=== PATIENT | female | born 1930 | race Caucasian/White ===

== ENCOUNTER 2016-07-13 16:07 | Emergency (ER) | payer MEDICARE, OTHER ==
[~2016-07-13] VITALS: TEMP 97.7; Ht 157.5 cm; Wt 95.3 kg
[~2016-07-13 16:07] MED LIST: ASCO-285 PO; CALC-946 PO; CALC250T2 PO; FURO20TA4 PO; GLUC1CAP45 PO; IBUP200C93 PO; METF500T4 PO; MULT1TAB39 PO; OMEP40CA52 PO; OXYB5TAB10 PO; PYRI200T PO; RAMI10CA24 PO; UBID100C10 PO; VITAMINS
--- NOTE | 2016-07-13 16:34 | NUR ---
PROVIDER DR. KAMINSKI AT BEDSIDE FOR EXAM.
[2016-07-13] MEDS ORDERED: ASPI-1115 PO (16:57)
[2016-07-13] MEDS ORDERED: ONDA4TAB10 PO (16:58)
[2016-07-13] MEDS ORDERED: MULT-1147 PO (17:02)
[2016-07-13] MEDS ORDERED: MELA1TAB8 PO (17:03)
[2016-07-13] MEDS ORDERED: FAMO10TA41 PO (17:04)
[2016-07-13] MEDS ORDERED: PAPA1TAB10 PO (17:04)
[2016-07-13] MEDS ORDERED: BIOT5000 PO (17:05)
[2016-07-13] MEDS ORDERED: MENT118G TOP (17:06)
[2016-07-13] MEDS ORDERED: GARL1TAB PO (17:07)
[2016-07-13] MEDS ORDERED: MULT-261 PO (17:15)
[2016-07-13] MEDS ORDERED: PYRI200T6 PO (17:15)
[2016-07-13] MEDS ORDERED: KYOLIC GARLIC PO (17:15)
[2016-07-13] MEDS ORDERED: ASCO500T9 PO (17:15)
[2016-07-13] MEDS ORDERED: CAT PO (17:15)
[2016-07-13] MEDS ORDERED: [UNRECOGNIZED DRUG - REMARK] PO (17:16)
[2016-07-13] MEDS ORDERED: NITR0.4T39 SL (17:16)
[2016-07-13] MEDS ORDERED: PREVAGEN PO (17:17)
--- NOTE | 2016-07-13 18:04 | NUR ---
RETURN PT RETURNED FROM RADIOLOGY BY CART AT THIS TIME.
--- NOTE | 2016-07-13 18:43 | NUR ---
STATUS PT WINCING WITH PAIN TO L KNEE. PROVIDER NOTIFIED.
[2016-07-13] MEDS ORDERED: ACETAMINOPHEN 500 MG TABLET PO ONE (19:00)
--- NOTE | 2016-07-13 19:44 | NUR ---
ACTIVITY PT UP IN ROOM WITH WALKER FOR AMBULATION. PT LEANING ON WALKER STATING "IT'S EASIER TO WALK THIS WAY. IT DOESN'T HURT MY KNEE BAD." EDUCATION ON PROPER WALKER USAGE PROVIDED TO PT AT THIS TIME. PT TOLERATES ACTIVITY WELL.
[2016-07-13] MEDS ORDERED: IBUPROFEN 200 MG TABLET PO ONE (19:45)
--- NOTE | 2016-07-13 19:52 | ERPDOC ---
Departure Disposition Decision Date: Jul 13, 2016 Disposition Decision Time: 19:15 Disposition: 01 DISCHARGED HOME, SELF-CARE Impression Impression Impression: Primary Impression: Knee sprain Encounter type: initial encounter Involved ligament of knee: other ligament Laterality: left Qualified Codes: S83.8X2A - Sprain of other specified parts of left knee, initial encounter Condition: Improved Seen By: Physician only Referrals: GRACE DACOSTA DO (Family) 1 Day Patient Instructions: Leg Pain (ED) Problems/Meds/Labs Reviewed?: Yes Medications reviewed and manag: Yes Follow up care ordered?: Yes Mental Status: Alert, Occasionally Confused HPI - Lower Extremity General Chief Complaint: Lower Extremity Pain Stated Complaint: LEFT LEG PAIN Time Seen by Provider: 16:33 Source: patient, family Exam Limitations: no limitations HPI - Lower Extremity Initial Comments 86-year-old female presents to the emergency department with a chief complaint of pain in the left leg. She noted onset of symptoms one day ago after she awkwardly twisted her leg and sat down on the floor in order to avoid falling or further injury. She denies striking her head, neck pain, or loss of consciousness. Patient has been having a moderate dull aching pain in the left leg mostly around the knee since the incident occurred. No radiation. She denies any other trauma or injury. Patient notes that the pain improves with [id number] analgesia and increases with ambulation and movement. She denies any other complaints or associated symptoms. She is not anticoagulated. Symptoms have been persistent in nature since onset. She normally ambulates with a walker. Occurred At: home Onset/Timing: Constant Allergies: Coded Allergies: Penicillins (Verified Allergy, Unknown, 07/13/16) Tetanus Vaccines and Toxoid (Verified Allergy, Unknown, 07/13/16) codeine (Verified Allergy, Unknown, 07/13/16) furosemide (Verified Allergy, Unknown, 07/13/16) goldenseal (Verified Allergy, Unknown, 07/13/16) omeprazole (Verified Allergy, Unknown, 07/13/16) propoxyphene (Verified Allergy, Unknown, 07/13/16) rofecoxib (Verified Allergy, Unknown, 07/13/16) rosuvastatin (Verified Allergy, Unknown, 07/13/16) sulfamethoxazole (Verified Allergy, Unknown, 07/13/16) tramadol (Verified Allergy, Unknown, 07/13/16) trimethoprim (Verified Allergy, Unknown, 07/13/16) Uncoded Allergies: SULFA MIXTURES (Allergy, Unknown, 11/08/07) Past History Past Medical History Metabolic: diabetes, hypertension GI: GERD Surgical History General: appendix Reproductive/: , hysterectomy Joint: knee Vaccines Hx Influenza Vaccination: No Hx Pneumococcal Vaccination: Yes (Pt thinks she had the pneumovax about 2 years ago) Hx Tetanus Diptheria: Yes ('YEARS AGO' PT ALLERGIC TO TETANUS) Social History Smoking Status: Never smoker Substance Use Type: does not use Alcohol Intake: none Sexuality: male partner Review of Systems Constitutional Constitutional: DENIES: chills, fever Eyes General: DENIES: erythema, exudate Lids/Accessories: DENIES: erythema, swelling Vision: DENIES: acuity, blurring ENMT Ears: DENIES: drainage, pain Hearing: DENIES: hearing loss Balance: DENIES: ataxia, falling to one side Sinuses: DENIES: congestion, pain Nose: DENIES: nosebleeds, pain Mouth/Throat: DENIES: painful swallowing, sore throat Teeth: DENIES: pain Jaw: DENIES: pain Cardiovascular Cardiac: DENIES: chest pain, dyspnea on exertion Rhythm/Rate: DENIES: irregular beat, palpitations Vascular: DENIES: pedal edema, unilateral swelling Pulmonary Respiratory: DENIES: cough, dyspnea, pleuritic chest pain, sputum GI Upper Abdomen: DENIES: nausea, pain, vomiting Lower Abdomen: DENIES: diarrhea, pain General: DENIES: dysuria, pain Musculoskeletal General: pain, tenderness Integumentary Skin: DENIES: itching, rash Neurological General: DENIES: headache, numbness, weakness Psychiatric Psychiatric: DENIES: nervousness, suicidal ideation/attempt Endocrine Endocrine: DENIES: polydipsia, polyphagia Hematologic/Lymphatic Hematologic/Lymphatic: DENIES: frequent nosebleeds, lymphadenopathy Allergic/Immunological Allergic/Immunoligical: DENIES: frequent infections, hives Physical Exam General General Nourishment: well nourished, well developed, appears stated age, no acute distress, adult General Body Habitus: well groomed Vitals and Pain First Documented Vital Signs Date Time Temp Pulse Resp B/P Pulse Ox O2 Delivery O2 Flow Rate FiO2 07/13/16 16:10 98.7 114 24 181/95 94 Room Air Weight: Kilograms: 103.400 Height (feet): 5 Height (inches): 2.00 Triage Pain Scale: RN VS reviewed by Provider: Yes Normal Exams: Head: Normocephalic w/o trauma Eyes: Pupils are PERRLA w/ EOMI, No scleral icterus, irritation, or foreign bodies noted ENMT: No facial trauma, nasal exudates, pharyngeal erythema, or exudates are noted Dental: No fractured, loose, or missing teeth noted Neck: Full range of motion, without adenopathy, JVD, bruits or thyromegaly Chest/Resp: Clear all wilson, with good airflow, and symmetry bilaterally CV: Regular rate and rhythm, without murmur or gallop, Pulses 2+ all extremities, capillary refill, <2 seconds all ext., no pedal edema noted Abdomen: Bowel sounds positive, soft, non-tender, non-distended, no hepatosplenomegaly, masses or bruits noted Lymphatic: No lymphadenopathy, or lymphedema noted Integumentary: No rashes, hives, or bruising noted, hair and nails, without abnormality Neurologic: Patient is alert, and oriented, cranial nerves, motor/sensory/ cerebellar, exams w/o gross deficits, to observation Psychiatric: Patient exhibits, appropriate attention, emotion and affect Neck (brief) Comments No midline tenderness or deformity. Musculoskeletal (brief) Comments LLE - full range of motion. Diffusely tender to palpation around the knee. Pulses are intact. Sensation intact. Capillary refill less than 2. No erythema. Trace lower extremity edema at baseline. Unremarkable ligamentous examination. No other tenderness in the left lower extremity. Skin is intact. All other extremities are unremarkable. Patient is able to ambulate with her walker in the emergency department. Differential Diagnoses Considering: Contusion, Fracture, Sprain, Strain Progress Results/Orders Orders Procedure Category Date Status Time Femur Left RAD 07/13/16 Taken 16:43 Knee Left 3 Views RAD 07/13/16 Taken 16:43 Tib-Fib Left 2 View RAD 07/13/16 Taken 16:43 Foot Left 3 Views RAD 07/13/16 Taken 16:43 Pelvis 1-2 View RAD 07/13/16 Taken Dedicated Pelv 16:43 Acetaminophen PHA 07/13/16 Complete (Tylenol Extra 19:00 Ibuprofen (Motrin) PHA 07/13/16 Complete 19:45 Medications Current ED Medications Acetaminophen (Tylenol Extra Strength) 1,000 mg O ONCE PO ; Start 07/13/16 at 19 :00; Stop 07/13/16 at 19:32; Status DC Ibuprofen (Motrin) 400 mg O ONCE PO Last administered on 07/13/16t 19:52; Start 07/13/16 at 19:45; Stop 07/13/16 at 19:46; Status DC Progress Progress Imaging is reviewed in detail with the patient and questions are answered. Patient is given analgesic pain medication with improvement in the emergency department. Imaging is negative. She was recommended to undergo placement of a knee immobilizer in the emergency department which she and her declined citing fall risk as a concern. She is to continue using over-the- counter analgesia as directed. After further discussion an Elkin wrap is placed to the patient's left knee with good alignment. She is distal neurovascularly intact post-application of Elkin wrap. Patient is able to ambulate with her walker in the emergency department. She is discharged home in improved condition. She is to follow up as instructed. She is to return to the emergency Department if her condition worsens or changes in any manner. Patient and family are in agreement with the current plan of management. Imaging was sent to [facility] for over read by radiology as patient and family requested interpretation by radiologist. All studies found to be negative. Patient's heart rate was 99 bpm taken by me immediately prior to discharge home. Xray Xray : Xray: Pelvis Interpretation: Normal, Interpreted by Me, Faxed Report (left hip: Negative left femur: Negative left knee: Negative left tibia/fibular: Negative left ankle : Negative left foot: Negative) ALBERTO KAMINSKI DO Jul 13, 2016 19:51
--- NOTE | 2016-07-13 20:04 | NUR ---
DISCHARGE WRITTEN INSTRUCTIONS REVIEWED AND SENT WITH PT. PT VERBALIZES UNDERSTANDING OF DI, DENIES QUESTIONS. PT EXITS ER BY W/C PER THIS RN AND IS ASSISTED INTO VEHICLE AT THIS TIME.
--- NOTE | 2016-07-14 08:13 | DI ---
Indication: ITS.REASON: pain PROCEDURE: TIB-FIB LEFT 2 VIEW: Encounter: Initial Comparison: None Findings: There is no acute fracture, dislocation or malalignment identified. Moderate osteoarthritis. Impression: No acute osseous abnormality. There is a preliminary report by [facility]. .
--- NOTE | 2016-07-14 08:14 | DI ---
Indication: ITS.REASON: pain PROCEDURE: KNEE LEFT 3 VIEWS: Encounter: Initial Comparison: None Findings: There is no acute fracture, dislocation or malalignment identified. Moderate to severe osteoarthritis in all three compartments with osteophyte formation and joint space loss. Impression: No acute osseous abnormality. There is a preliminary report by [employer] radiologic. .
--- NOTE | 2016-07-14 08:14 | DI ---
Indication: ITS.REASON: pain PROCEDURE: FOOT LEFT 3 VIEWS: Encounter: Initial Comparison: None Findings: There is no acute fracture, dislocation or malalignment identified. Severe degenerative change in the foot. Impression: No acute osseous abnormality. There is a preliminary report by [facility]. .
--- NOTE | 2016-07-14 08:15 | DI ---
Indication: ITS.REASON: pain PROCEDURE: AP and Lateral views of the Left Femur Encounter: Initial Comparison: None Findings: There is no acute fracture, dislocation or malalignment identified. Degenerative change in the knee. Impression: No acute osseous abnormality. There is a preliminary report by [facility]. .
--- NOTE | 2016-07-14 08:28 | DI ---
Indication: ITS.REASON: Fall with pain PROCEDURE: PELVIS 1-2 VIEW DEDICATED PELV: Encounter: Initial Comparison: None Findings: There is no acute fracture, dislocation or malalignment identified. Impression: No acute osseous abnormality. There is a preliminary report by [facility]. .
[2016-07-17 13:46] VITALS: Ht 157.5 cm; Wt 95.3 kg
[2016-07-17 13:52] VITALS: BP 139/102; PULSE 116; RESP 16; TEMP 97.7; O2SAT 96
[2016-07-17 14:11] VITALS: PULSE 116; RESP 15
[2016-07-17] MEDS ORDERED: DILTIAZEM 25mg/5ml INJECTION IV STA (14:12)
[2016-07-17] MEDS ORDERED: ASPIRIN 81 MG CHEWABLE TABLET PO SCH (14:13)
[2016-07-17] MEDS ORDERED: DILTIAZEM IV SCH (14:15)
[2016-07-17] MEDS ORDERED: ENOXAPARIN 100 MG/ML INJECTION SQ SCH (14:15)
[2016-07-17] MEDS ORDERED: NS IV SCH (14:15)
--- OUTSIDE RECORDS SUMMARY | 2016-07-17 14:15 | XMS REPORT | Continuity of Care Document ---
Author Author [facility] Organization [facility] Address Unknown Phone Unavailable Support Name Relationship Address Phone ALBERTO KAMINSKI DO Caregiver [address] [place] [address] Unavailable GRACE DACOSTA DO Caregiver [address] [place] [address] Unavailable AB BENAVIDES Next Of Kin [address] [place], [place] [id number] Insurance Providers Guarantor Shahnaz Benavides Address [address] [place] [address] Email [id number] Payer [facility] Preferred Policy Number [id number] Subscriber's Name Ab Benavides Relationship 01 Spouse Group Number [id number] Effective Date 13 Payer Medicare Policy Number [id number] Subscriber's Name Shahnaz Benavides Relationship 18 Self Effective Date 96 Chief Complaint and Reason for Visit Chief Complaint Lower Extremity Pain Reason for Visit Knee sprain Problems Past Problems Medical Problem Onset Date Abrasions of multiple sites Unknown Concussion Unknown Knee sprain Unknown Nasal bones, closed fracture Unknown Traumatic hematoma of forehead Unknown Medications Current Home Medications Medication Dose Units Route Directions Days Qty Instructions Start Date Ascorbic Acid (Vitamin C) 500 Mg Tablet 500 Mg Oral Twice A Day 07/13/16 Aspirin (Ecotrin) 325 Mg Tablet. 325 Mg Oral Daily 07/13/16 Biotin 5,000 Mcg Tab.rapdis 5,000 Mcg Oral Twice A Day 07/13/16 Cat's Claw Unknown Strength Capsule 1 Cap Oral Daily 07/13/16 Famotidine (Pepcid Ac) 10 Mg Tablet 10 Mg Oral Bedtime 07/13/16 Furosemide 20 Mg Tablet 20 Mg Oral Daily 10/07/15 Garlic 1 Each Tablet 1 Tab Oral Daily 07/13/16 Ibuprofen (Advil Liqui-Gels) 200 Mg Capsule 2 Cap Oral Every 4 Hours as needed for Pain 10/07/15 Kyolic Garlic 1 Tab Oral Daily 07/13/16 Melatonin 1 Mg Tablet 1 Mg Oral Bedtime 07/13/16 Menthol (Biofreeze) 118 Ml Gel..ml. 1 Applic Topically As Needed 07/13/16 Mood Fix 1 Tab Oral Daily 07/13/16 Multivitamin (Multiple Vitamins) 1 Each Tablet 1 Tab Oral Daily 07/13/16 Multivits Min/Iron/Fa/Herb#186 (Hair, Skin & Nails Caplet) 1 Each Tablet 1 Tab Oral Daily 07/13/16 Nitroglycerin 0.4 Mg Tab.subl 0.4 Mg Sublingual Every 5 Minutes as needed for Chest Tightness 07/13/16 Omeprazole 40 Mg Capsule. 40 Mg Oral Daily 10/07/15 Ondansetron (Ondansetron Odt) 4 Mg Tab.rapdis 4 Mg Oral Three Times A Day as needed for Nausea &/Or Vomiting 07/13/16 Papaya (Papaya Enzyme) 1 Each Tablet 4 Tab Oral Daily 07/13/16 Prevagen 1 Tab Oral Daily 07/13/16 Pyridoxine Hcl (Vitamin B-6) 200 Mg Tablet.er 200 Mg Oral Daily 07/13/16 Ramipril 10 Mg Capsule 10 Mg Oral Daily 10/07/15 Ubidecarenone (Coq-10) 100 Mg Capsule 100 Mg Oral Daily 02/29/08 Past Home Medications Medication Directions Ordered Status Methylsulfonylmethane (Msm) 1,000 Mg Capsule, 02/29/08 Discontinued Pantoprazole Sodium (Protonix) 40 Mg Tablet., 02/29/08 Discontinued Zolpidem Tartrate 5 Mg Tablet, 0.5 - 1 Tab Oral As Needed 02/29/08 Discontinued Social History Social History Problem Response Recorded Date/Time Onset Date Status Hx Substance Use No 07/13/2016 4:30pm Not Applicable Not Applicable Hx Alcohol Use No 07/13/2016 4:30pm Not Applicable Not Applicable Tobacco Usage none 10/07/2015 6:59pm Not Applicable Not Applicable Query Response Start Date Stop Date Smoking Status Never smoker Hospital Discharge Instructions No hospital discharge instructions. Plan of Care Discharge Date 07/13/16 8:04pm Disposition 01 DISCHARGED HOME, SELF-CARE Condition at Discharge Improved Instructions/Education Provided Leg Pain (ED) Prescriptions See Medication Section Referrals GRACE DACOSTA DO Order Date: 1 Day Address: [address] [place] [address] [address] [place] [phone] Note: Care Plan and Goals Physician Care Plan Problem: Knee Pain Goal: Follow up with primary care provider Instructions: Take medications and follow care plan as discussed/written Functional Status No functional status results. Allergies, Adverse Reactions, Alerts Allergen Type Severity Reaction Status Last Updated Penicillin Allergy Unknown Active 07/13/16 Tetanus Vaccines and Toxoid Allergy Unknown Active 07/13/16 Codeine Allergy Unknown Active 07/13/16 Propoxyphene Allergy Unknown Active 07/13/16 Furosemide Allergy Unknown Active 07/13/16 goldenseal Allergy Unknown Active 07/13/16 Sulfamethoxazole Allergy Unknown Active 07/13/16 Trimethoprim Allergy Unknown Active 07/13/16 Omeprazole Allergy Unknown Active 07/13/16 Tramadol Allergy Unknown Active 07/13/16 Rofecoxib Allergy Unknown Active 07/13/16 Rosuvastatin Allergy Unknown Active 07/13/16 SULFA MIXTURES Allergy Unknown Active 11/08/07 Immunizations Query Response on File Recorded Date/Time Hx Influenza Vaccination No 06/03/09 5:00pm Hx Pneumococcal Vaccination Y Pt thinks she had the pneumovax about 2 years ago 06/03/09 5:00pm Hx Influenza Vaccination No 06/03/09 5:00pm Hx Tetanus Diptheria N ALLERGIC TO TETANUS 07/13/16 4:30pm Vital Signs Acute Vital Signs Vital Response Date/Time Temperature (Fahrenheit) 98.7 deg F (96.8 - 99.1) 07/13/2016 8:04pm Temperature (Calculated Celsius) 37.24504 degrees C (36.0 - 37.3) 07/13/2016 8:04pm Pulse Rate (adult) 102 bpm (60 - 100) 07/13/2016 8:04pm Respiratory Rate 18 breaths/min (10 - 20) 07/13/2016 8:04pm O2 Sat by Pulse Oximetry 95 % (90 - 100) 07/13/2016 8:04pm Blood Pressure 131/93 mm Hg 07/13/2016 8:04pm Height (Feet) 5 feet 07/13/2016 4:10pm Height (Inches) 2.00 inches 07/13/2016 4:10pm Weight (Kilograms) 103.400 kg 07/13/2016 4:10pm Body Mass Index (BMI) 41.0 07/13/2016 4:10pm Results No known relevant diagnostic tests, laboratory data and/or discharge summary. Procedures No known history of procedures. Encounters Encounter Location Arrival/Admit Date Discharge/Depart Date Attending Provider Departed Emergency Room [facility] 07/13/16 4:07pm 07/13/16 8: 04pm ALBERTO KAMINSKI DO Registered [facility] 07/13/16 3:38pm GRACE DACOSTA DO Recent Diagnosis
--- NOTE | 2016-07-17 14:27 | DI ---
Indication: ITS.REASON: NEW ONSET AFIB WITH RVR PROCEDURE: CHEST 1 VIEW: Encounter: Initial Comparison: None Findings: A single frontal chest radiograph demonstrate moderate hypoventilation but no confluent infiltrate, cardiomegaly or pulmonary vascular engorgement allowing for the degree of inspiration. Pleural spaces clear. Trachea midline. Monitor leads overlie the chest. Degenerative changes of the left shoulder. Impression: Mild hypoventilation; negative for acute chest disease. .
[2016-07-17] MEDS ORDERED: NITROGLYCERIN 0.4 MG SUBLINGUAL TABLET SL PRN (14:30)
[2016-07-17 15:00] VITALS: BP 158/82; PULSE 96; RESP 15; TEMP 97.7; O2SAT 93
[2016-07-17 15:10] VITALS: PULSE 79; RESP 17; O2SAT 98
[2016-07-17] MEDS ORDERED: ASCORBIC ACID 500 MG TABLET PO SCH (21:00)
[2016-07-17] MEDS ORDERED: MELATONIN 1 MG TABLET PO SCH (22:00)
[2016-07-18] MEDS ORDERED: OMEPRAZOLE 20 MG CAPSULE PO SCH (06:30)
[2016-07-18] MEDS ORDERED: FUROSEMIDE 20 MG TABLET PO SCH (09:00)
[2016-07-18] MEDS ORDERED: ASPIRIN *EC* 325mg TABLET PO SCH (09:00)
[2016-07-18] MEDS ORDERED: RAMIPRIL 5 MG CAPSULE PO SCH (09:00)
[2016-07-20] MEDS ORDERED: DABI150C PO (15:03)
[2016-07-20] MEDS ORDERED: CEFD300C3 PO (15:03)
== END 2016-07-13 20:04 | disposition home or self-care (01) ==
LOC: ED 16:07 → UNDOADMOB 07-17 13:21 → CCU 07-17 13:21 → INTOOBSV 07-17 13:21 → OBSVTOIN 07-17 13:21 → SRG 07-17 15:43 → CCU 07-17 15:43
DX: S83.8X2A Sprain of other specified parts of left knee, initial encounter (principal); X50.1XXA Overexertion from prolonged static or awkward postures, initial encounter; Y93.9 Activity, unspecified; Y92.009 Unspecified place in unspecified non-institutional (private) residence as the place of occurrence of the external cause; Y99.8 Other external cause status
CPT/HCPCS: 72170; 73552; 73562; 73590; 73630; 99283; A9270; 93005; 93306

== ENCOUNTER 2016-08-10 15:46 | Observation (INO) | payer MEDICARE, OTHER ==
[2016-08-10] VITALS (33 sets, daily range): BP systolic 113–174; BP diastolic 58–98; PULSE 64–120; RESP 16–31; TEMP 98–98.7; O2SAT 89–95; Ht 157.5 cm; Wt 95.7 kg
[~2016-08-10] VITALS: Ht 157.5 cm; Wt 95.7 kg
[~2016-08-10 15:46] MED LIST changes: -ASCO-285 PO; +ASCO500T9 PO; +ASPI-1115 PO; +BIOT5000 PO; -CALC-946 PO; -CALC250T2 PO; +CAT PO; +CEFD300C3 PO; +DABI150C PO; +FAMO10TA41 PO; +GARL1TAB PO; -GLUC1CAP45 PO; -IBUP200C93 PO; +KYOLIC GARLIC PO; +MELA1TAB8 PO; +MENT118G TOP; -METF500T4 PO; +MULT-1147 PO; +MULT-261 PO; -MULT1TAB39 PO; +NITR0.4T39 SL; +ONDA4TAB10 PO; -OXYB5TAB10 PO; +PAPA1TAB10 PO; +PREVAGEN PO; -PYRI200T PO; +PYRI200T6 PO; -VITAMINS; +[UNRECOGNIZED DRUG - REMARK] PO
[2016-08-10] MEDS ORDERED: NORMAL SALINE IV ONE (15:49)
[2016-08-10] MEDS ORDERED: AMIODARONE 900 MG in NORMAL SALINE 500 ML IV SCH ×2 (15:49→21:49)
[2016-08-10] MEDS ORDERED: AMIODARONE IV ONE (15:49)
--- OUTSIDE RECORDS SUMMARY | 2016-08-10 15:51 | XMS REPORT | Continuity of Care Document ---
Author Author [facility] Organization [facility] Address Unknown Phone Unavailable Support Name Relationship Address Phone GRACE DACOSTA DO Caregiver [address] [place] [address] Unavailable GRACE DACOSTA DO Caregiver [address] [place] [address] Unavailable GRACE DACOSTA DO Caregiver [address] [place] [address] Unavailable AB BENAVIDES Next Of Kin [address], [place] [id number] Insurance Providers Guarantor Shahnaz Benavides Address [address] [place] [address] Email DENIED/2016 Payer [facility] Preferred Policy Number [id number] Subscriber's Name Ab Benavides Relationship 01 Spouse Group Number [id number] Effective Date 13 Payer Medicare Policy Number [id number] Subscriber's Name Shahnaz Benavides Relationship 18 Self Effective Date 96 Advance Directives Directive Response Recorded Date/Time Ordered Resuscitation Status Full Code, unverified 07/17/16 4:41pm Resuscitation Documents on File No 07/17/16 3:53pm DPOA for Healthcare Only Y AB 07/19/16 3:48pm Living Will Yes 07/17/16 3:53pm Chief Complaint and Reason for Visit Chief Complaint A FIB WITH RVR Reason for Visit Morbid obesity Sleep apnea Tricompartment osteoarthritis of left knee Urinary tract infection Abrasions of multiple sites Concussion Knee sprain Nasal bones, closed fracture Problems Active Problems Medical Problem Onset Date Status Atrial fibrillation with RVR Unknown Resolved Diabetes mellitus Unknown Chronic Essential (primary) hypertension Unknown Chronic Fall at home Unknown Acute Left knee injury Unknown Acute Morbid obesity Unknown Chronic Sleep apnea Unknown Chronic Tricompartment osteoarthritis of left knee Unknown Chronic Urinary tract infection Unknown Acute Past Problems Medical Problem Onset Date Abrasions [...] Strength Capsule 1 Cap Oral Daily 07/13/16 Cefdinir 300 Mg Capsule 300 Mg Oral Twice A Day 7 Days 14 Capsule 01/28 Dabigatran Etexilate Mesylate (Pradaxa) 150 Mg Capsule 150 Mg Oral Twice A Day 30 Days 60 Capsule 07/20/16 Famotidine (Pepcid Ac) 10 Mg Tablet 10 Mg Oral Bedtime 07/13/16 Furosemide 20 Mg Tablet 20 Mg Oral Daily 10/07/15 Garlic 1 Each Tablet 1 Tab Oral Daily 07/13/16 Kyolic Garlic 1 Tab Oral Daily 07/13/16 [...] Past Home Medications Medication Directions Ordered Status Ibuprofen (Advil Liqui-Gels) 200 Mg Capsule, 2 Cap Oral Every 4 Hours as needed for Pain 10/07/15 Discontinued Methylsulfonylmethane (Msm) 1,000 Mg Capsule, 02/29/08 Discontinued Pantoprazole Sodium (Protonix) 40 Mg Tablet., 02/29/08 Discontinued Zolpidem Tartrate 5 Mg Tablet, 0.5 - 1 Tab Oral As Needed 02/29/08 Discontinued Social History Social History Problem Response Recorded Date/Time Onset Date Status Reason for Hospitalization a fib 07/20/2016 3:11pm Not Applicable Not Applicable Hx Substance Use No 07/13/2016 4:30pm Not Applicable Not Applicable Hx Alcohol Use No 07/13/2016 4:30pm Not Applicable Not Applicable Has the pt used tobacco in the last 12 months No 07/17/2016 3:54pm Not Applicable Not Applicable Tobacco Usage none 10/07/2015 6:59pm Not Applicable Not Applicable Query Response Start Date Stop Date Smoking Status Never smoker Hospital Discharge Instructions Instructions: Care Instructions: Reason for Hospitalization: a fib I was in the hospital because (patient own words): THERES SOMETHING WRONG WITH MY HEART Discharge Diet: cardiac Discharge Activity: work with PT/OT Follow Up Appointments: [facility] in 10-14 days [facility] in 10-14 days Pending Lab / Results: No Pending Lab Wound/Incision Care: N/A Pain Management/Treatment: Tylenol ES 2 Q 8 hrs Expected Signs/Symptoms: Shortnes of breath, left knee pain Notify Physician If: condition worsens During Business Hours:: Please call the physician's office at [phone] After Business Hours:: Please call [phone] and have the boring machine operator vertical page the physician. Condition at time of discharge: Good Plan of Care Discharge Date 07/20/16 4:53pm Disposition 03 TO U NOT [facility] (SNF) Instructions/Education Provided Dabigatran (By mouth) (MEFS) Atrial Fibrillation (GEN) Prescriptions See Medication Section Care Plan and Goals See Discharge Instructions Section Functional Status Query Response Date Recorded Mobility Status Ambulatory w/assist July 20, 2016 3:11pm Assistive Devices tri pod walker July 20, 2016 3:11pm Feeding Ability Independent July 20, 2016 3:11pm Toileting Ability Assist July 20, 2016 3:11pm Grooming Ability Assist July 20, 2016 3:11pm Dressing Ability Assist July 20, 2016 3:11pm Driving Ability Dependent July 20, 2016 3:11pm Housework Ability Assist July 20, 2016 3:11pm Meal Preparation Ability Assist July 20, 2016 3:11pm Stair Climbing Ability Assist July 20, 2016 3:11pm Ability to complete ADL's impeded by No change July 20, 2016 3:11pm Cognitive/Perceptual Impairments Impaired vision July 20, 2016 3:11pm Visual Assistive Devices Glasses With patient July 17, 2016 4:00pm Preferred Method of Learning Reading Listening Hands on July 17, 2016 4:00pm Allergies, Adverse Reactions, Alerts Allergen Type Severity [...] on File Recorded Date/Time Hx Influenza Vaccination N never ever have had a flu shot" 07/17/16 3:54pm Hx Pneumococcal Vaccination Y Pt thinks she had the pneumovax about 2 years ago 07/17/16 3:54pm Hx Influenza Vaccination N never ever have had a flu shot" 07/17/16 3:54pm Hx Tetanus Diptheria N ALLERGIC TO TETANUS 07/13/16 4:30pm Vital Signs Acute Vital Signs Vital Response Date/Time Temperature (Fahrenheit) 97.5 deg F (96.8 - 99.1) 07/20/2016 12:00am Temperature (Calculated Celsius) 36.31750 degrees C (36.0 - 37.3) 07/20/2016 12:00am Pulse Rate (adult) 61 bpm (60 - 100) 07/20/2016 11:00am Respiratory Rate 18 breaths/min (10 - 20) 07/20/2016 11:00am O2 Sat by Pulse Oximetry 93 % (90 - 100) 07/20/2016 11:00am Oxygen Delivery Method Nasal Cannula 07/19/2016 8:55pm Oxygen Delivery Method Room Air 07/20/2016 11:00am Oxygen Flow Rate 2.00 L/min 07/20/2016 8:45am Blood Pressure 145/76 mm Hg 07/20/2016 11:00am Blood Pressure Source Automatic Cuff 07/20/2016 11:00am Height (Feet) 5 feet 07/19/2016 1:23pm Height (Inches) 2.00 inches 07/19/2016 1:23pm Weight (Kilograms) 100.700 kg 07/18/2016 9:28am Body Mass Index (BMI) 38.4 07/17/2016 3:53pm Results Laboratory Results Test Name Result Units Flags Reference Collection Date/Time Result Date/ Time Comments White Blood Count 5.9 T/MM3 4.5-11.0 07/18/2016 4:20am 07/18/2016 4: 57am Red Blood Count 3.81 M/MM3 L 4.00-5.20 07/18/2016 4:20am 07/18/2016 4: 57am Hemoglobin 12.1 GM/DL 12-16 07/18/2016 4:20am 07/18/2016 4:57am Hematocrit 37.2 % 36-46 07/18/2016 4:20am 07/18/2016 4:57am Mean Corpuscular Volume 97.6 UM3 80-100 07/18/2016 4:20am 07/18/2016 4: 57am Mean Corpuscular Hemoglobin 31.8 UUG 26-34 07/18/2016 4:20am 2016 4:57am Mean Corpuscular Hemoglobin Concent 32.5 GM/DL 31-37 07/18/2016 4:20am 07/18/2016 4:57am RDW Standard Deviation 47.3 FL 36.9-50.2 07/18/2016 4:20am 07/18/2016 4 :57am Platelet Count 268 T/MM3 130-400 07/18/2016 4:20am 07/18/2016 4:57am Mean Platelet Volume 11.0 UM3 9.4-12.4 07/18/2016 4:20am 07/18/2016 4: 57am Neutrophils (%) (Auto) 48.5 % 33-66 07/18/2016 4:20am 07/18/2016 4: 57am Lymphocytes (%) (Auto) 36.5 % 23-45 07/18/2016 4:20am 07/18/2016 4: 57am Monocytes (%) (Auto) 8.9 % 0-9.0 07/18/2016 4:2007/18/2016 4:57am Eosinophils (%) (Auto) 5.4 % H 0-4 07/18/2016 4:2007/18/2016 4:57am Basophils (%) (Auto) 0.5 % 0-2 07/18/2016 4:2007/18/2016 4:57am Immature Granulocyte % (Auto) 0.2 % 0.0-0.5 07/18/2016 4:2016 4:57am Absolute Neutrophils (auto) 2.9 T/MM3 1.8-7.7 07/18/2016 4:2016 4:57am Absolute Lymphocytes (auto) 2.2 T/MM3 1-4.8 07/18/2016 4:2016 4:57am Absolute Monocytes (auto) 0.5 T/MM3 0-0.8 07/18/2016 4:2007/18/2016 4:57am Absolute Eosinophils (auto) 0.3 T/MM3 0-0.5 07/18/2016 4:2016 4:57am Absolute Basophils (auto) 0.0 T/MM3 0-0.2 07/18/2016 4:07/18/2016 4:57am Absolute Immature Granulocyte (auto 0.01 T/MM3 0.00-0.03 07/18/2016 4: 2007/18/2016 4:57am Neutrophils % (Manual) 65.0 % 33-66 07/17/2016 2:01pm 07/17/2016 3: 36pm Lymphocytes % (Manual) 22.0 % L 23-45 07/17/2016 2:01pm 07/17/2016 3: 36pm Monocytes % (Manual) 6.0 % 0-9.0 07/17/2016 2:01pm 07/17/2016 3:36pm Eosinophils % (Manual) 7.0 % H 0-4 07/17/2016 2:01pm 07/17/2016 3:36pm Absolute Neutrophils (Manual) 4.3 T/MM3 1.8-7.7 07/17/2016 2:01pm 07/17 3:36pm Lymphocytes # (Manual) 1.5 T/MM3 1-4.8 07/17/2016 2:01pm 07/17/2016 3: 36pm Monocytes # (Manual) 0.4 T/MM3 0-0.8 07/17/2016 2:01pm 07/17/2016 3: 36pm Eosinophils # (Manual) 0.5 T/MM3 0-0.5 07/17/2016 2:01pm 07/17/2016 3: 36pm Red Cell Morphology Comment NORMAL 07/17/2016 2:01pm 07/17/2016 3: 36pm Icterus Index < 2 0-7 07/20/2016 5:12am 07/20/2016 5:43am Chemistry Specimen Hemolysis < 15 0-25 07/20/2016 5:12am 07/20/2016 5 :43am 0-25: Specimen Exhibited No Hemolysis. Turbidity < 20 0-20 07/20/2016 5:12am 07/20/2016 5:43am Sodium Level 140 MEQ/L 134-144 07/20/2016 5:12am 07/20/2016 5:43am Potassium Level 4.3 MEQ/L 3.6-5 07/20/2016 5:12am 07/20/2016 5:43am Chloride Level 102 MEQ/L 98-107 07/20/2016 5:12am 07/20/2016 5:43am Carbon Dioxide Level 28 MEQ/L 22-30 07/20/2016 5:12am 07/20/2016 5: 43am Anion Gap 10 MEQ/L 5-15 07/20/2016 5:12am 07/20/2016 5:43am Blood Urea Nitrogen 19.0 MG/DL H 7-17 07/20/2016 5:12am 07/20/2016 5: 43am Creatinine 0.8 MG/DL D 0.7-1.2 07/20/2016 5:1207/20/2016 5:45am BUN/Creatinine Ratio 24 RATIO 6-26 07/20/2016 5:12am 07/20/2016 5:43am Glomerular Filtration Rate Calc 68 07/20/2016 5:12am 07/20/2016 5: 43am Glucose Level 207 MG/DL H 65-110 07/20/2016 5:12am 07/20/2016 5:43am Calculated Osmolality 277 MOSM/KG 261-280 07/20/2016 5:12am 07/20/2016 5:43am Calcium Level 9.3 MG/DL 8.4-10.2 07/20/2016 5:12am 07/20/2016 5:43am Phosphorus Level 3.3 MG/DL 2.5-4.5 07/20/2016 5:12am 07/20/2016 5:43am Total Bilirubin 0.60 MG/DL 0.20-1.30 07/17/2016 2:01pm 07/17/2016 3: 00pm Alkaline Phosphatase 82 U/L 38-126 07/17/2016 2:01pm 07/17/2016 3:00pm Total Protein 6.7 G/DL 6.3-8.2 07/17/2016 2:01pm 07/17/2016 3:00pm Albumin 3.7 G/DL 3.5-5.0 07/20/2016 5:12am 07/20/2016 5:43am Globulin 3.0 G/DL 2.4-3.6 07/17/2016 2:01pm 07/17/2016 3:00pm Albumin/Globulin Ratio 1.2 RATIO 1.1-2.2 07/17/2016 2:01pm 07/17/2016 3 :00pm Aspartate Amino Transf (AST/SGOT) 23 U/L 14-36 07/17/2016 2:01pm 2016 3:00pm Alanine Aminotransferase (ALT/SGPT) 30 U/L 9-52 07/17/2016 2:01pm 07/17 3:00pm Troponin I < 0.012 ng/ml 0-0.12 07/18/2016 3:22pm 07/18/2016 3:51pm Troponin values with a difference of 55% increase from orginal troponin value represent a true biological DELTA value. (%increase Calc=Orginal Troponin value, divided by subsequent Troponin value, multiplied by 100) Magnesium Level 2.2 MG/DL 1.6-2.3 07/17/2016 2:01pm 07/17/2016 3:00pm Free Thyroxine 1.18 NG/DL 0.78-2.19 07/17/2016 2:01pm 07/19/2016 1: 02am Thyroid Stimulating Hormone (TSH) 0.43 MIU/L L 0.47-4.68 07/17/2016 2: 01pm 07/17/2016 3:29pm Urine Collection Type CLEANCATCH-MIDSTREAM 07/17/2016 2:42pm 2016 2:59pm Urine Color YELLOW YELLOW 07/17/2016 2:42pm 07/17/2016 2:59pm Urine Turbidity SL CLOUDY CLEAR 07/17/2016 2:42pm 07/17/2016 2:59pm Urine Specific [place] 1.020 1.015-1.025 07/17/2016 2:42pm 2016 2:59pm Urine pH 6.0 5.0-8.0 07/17/2016 2:42pm 07/17/2016 2:59pm Urine Leukocyte Esterase NEGATIVE NEGATIVE 07/17/2016 2:42pm 2016 2:59pm Urine Nitrite POSITIVE A NEGATIVE 07/17/2016 2:42pm 07/17/2016 2:59pm Urine Protein NEGATIVE NEGATIVE 07/17/2016 2:42pm 07/17/2016 2:59pm Urine Glucose (UA) NEGATIVE NEGATIVE 07/17/2016 2:42pm 07/17/2016 2: 59pm Urine Ketones NEGATIVE NEGATIVE 07/17/2016 2:42pm 07/17/2016 2:59pm Urine Urobilinogen 0.2 EU/DL NORMAL 07/17/2016 2:42pm 07/17/2016 2: 59pm Urine Bilirubin NEGATIVE NEGATIVE 07/17/2016 2:42pm 07/17/2016 2: 59pm Urine Blood NEGATIVE NEGATIVE 07/17/2016 2:42pm 07/17/2016 2:59pm Urine WBC 1-3 /HPF 0-5 07/17/2016 2:42pm 07/17/2016 3:09pm Urine RBC 0-1 /HPF 0-3 07/17/2016 2:42pm 07/17/2016 3:09pm Urine Bacteria 3+ H NEGATIVE 07/17/2016 2:42pm 07/17/2016 3:09pm Urine Culture Indicated CULT REFLEXED &SETUP 07/17/2016 2:42pm 10/2016 3:09pm Glucometer 94 mg/dL 65-110 07/17/2016 10:28pm 07/17/2016 10:56pm Microbiology Results Procedure Source Organism/Result Collection Date/Time Result Date/Time Result Status Urine Culture Urine, Clean Catch-Midstream ESCHERICHIA COLI 07/17/2016 3: 09pm 07/19/2016 6:54am Final Name: SHAHNAZ BENAVIDES Unit #: [id number] : 1930 Sex: F DISCHARGE SUMMARY Admit Date: 07/17/16 Report #: [id number] [facility] Discharge Diagnoses Discharge Diagnoses (1) Atrial fibrillation with RVR Comments: on Flecainide. (2) Fall at home (3) Left knee injury (4) Urinary tract infection Comments: Escherichia coli--not sensitive to quinolones (5) Diabetes mellitus (6) Sleep apnea (7) Essential (primary) hypertension (8) Morbid obesity Hospital Course I will have her stay in the ICU tonight and if she maintains her conversion for 24 hours and will transfer her to medical floor with physical therapy consultation for her left knee injury secondary to her fall at home. 07/19/16: Remains in NSR on Flecainide. Still with significant left knee pain. MRI pending. Consider ortho consult. Transfer to med floor on tele. Home Meds Active Scripts Dabigatran Etexilate Mesylate (Pradaxa) 150 Mg Capsule, 150 MG PO BID for 30 Days, #60 CAP 11 Refills Prov:GRACE DACOSTA DO 07/20/16 Cefdinir (Cefdinir) 300 Mg Capsule, 300 MG PO BID for 7 Days, #14 CAP 0 Refills Prov:GRACE DACOSTA DO 07/20/16 Reported Medications [Prevagen] No Conflict Check, 1 TAB PO DAILY 07/13/16 Nitroglycerin (Nitroglycerin) 0.4 Mg Tab.subl, 0.4 MG SL Q5M Y for CHEST TIGHTNESS 07/13/16 [Mood Fix] No Conflict Check, 1 TAB PO DAILY 07/13/16 Multivitamin (Multiple Vitamins) 1 Each Tablet, 1 TAB PO DAILY 07/13/16 Pyridoxine HCl (Vitamin B-6) 200 Mg Tablet.er, 200 MG PO DAILY 07/13/16 Ascorbic Acid (Vitamin C) 500 Mg Tablet, 500 MG PO BID 07/13/16 [Kyolic Garlic] No Conflict Check, 1 TAB PO DAILY 07/13/16 Cat's Claw (Cat's Claw) Unknown Strength Capsule, 1 CAP PO DAILY 07/13/16 Garlic (Garlic) 1 Each Tablet, 1 TAB PO DAILY 07/13/16 Menthol (Biofreeze) 118 Ml Gel..ml., 1 APPLIC TOP PRN 07/13/16 Biotin (Biotin) 5,000 Mcg Tab.rapdis, 5000 MCG PO BID 07/13/16 Papaya (Papaya Enzyme) 1 Each Tablet, 4 TAB PO DAILY 07/13/16 Famotidine (Pepcid AC) 10 Mg Tablet, 10 MG PO HS 07/13/16 Melatonin (Melatonin) 1 Mg Tablet, 1 MG PO HS 07/13/16 Multivits Min/Iron/FA/Herb#186 (Hair, Skin & Nails Caplet) 1 Each Tablet, 1 TAB PO DAILY 07/13/16 Ondansetron (Ondansetron Odt) 4 Mg Tab.rapdis, 4 MG PO TID Y for NAUSEA &/OR VOMITING 07/13/16 Aspirin *EC* (Ecotrin) 325 Mg Tablet.dr, 325 MG PO DAILY 07/13/16 Omeprazole (Omeprazole) 40 Mg Capsule.dr, 40 MG PO DAILY 10/07/15 Furosemide (Furosemide) 20 Mg Tablet, 20 MG PO DAILY 10/07/15 Ramipril (Ramipril) 10 Mg Capsule, 10 MG PO DAILY 10/07/15 Ubidecarenone (Coq-10) 100 Mg Capsule, 100 MG PO DAILY 02/29/08 Discontinued Reported Medications Ibuprofen (Advil Liqui-Gels) 200 Mg Capsule, 2 CAP PO Q4H Y for PAIN 10/07/15 Discharge Disposition as directed Copies To 1: GRACE DACOSTA DO Copies To 2: ESMER HOUSTON MD Follow up Condition at time of discharge: Good Follow up as directed GRACE DACOSTA DO Jul 20, 2016 15:05 Procedures No known history of procedures. Encounters Encounter Location Arrival/Admit Date Discharge/Depart Date Attending Provider Discharged Inpatient [facility] 07/17/16 1:45pm 07/20/16 4:53pm GRACE DACOSTA DO Departed Emergency Room [facility] 07/13/16 8:04pm 07/13/16 8: 04pm GRACE DACOSTA DO Registered [facility] 07/13/16 3:38pm GRACE DACOSTA DO Recent Diagnosis Morbid obesity Sleep apnea Tricompartment osteoarthritis of left knee Urinary tract infection Abrasions of multiple sites Concussion Knee sprain Nasal bones, closed fracture
[2016-08-10] MEDS ORDERED: DILTIAZEM 25mg/5ml INJECTION IV ONE (16:00)
[2016-08-10] MEDS ORDERED: FENTANYL 100mcg/2ml INJECTION IV ONE (16:00)
[2016-08-10] MEDS ORDERED: MIDAZOLAM 2mg/2ml INJECTION IV ONE (16:00)
[2016-08-10] MEDS ORDERED: AMIODARONE 150 MG in NORMAL SALINE 100 ML IV ONE ×2 (16:00→16:15)
--- NOTE | 2016-08-10 16:00 | NUR ---
Status admitted to bed, somewhat confused, with patient. Rapid atrial tachycardia.
--- NOTE | 2016-08-10 16:45 | NUR ---
Iv inserted, started amiodarone bolus.
[2016-08-10] MEDS: DILTIAZEM 125 MG in NORMAL SALINE 125 ML IV SCH ×2 (17:00→17:03)
--- NOTE | 2016-08-10 17:30 | NUR ---
Amio drip going, cardiqem bolus and drip started.
[2016-08-10] MEDS ORDERED: NITROGLYCERIN 0.4 MG SUBLINGUAL TABLET SL PRN (18:30)
[2016-08-10] MEDS ORDERED: ONDANSETRON 4 MG PO PRN (18:30)
[2016-08-10] MEDS ORDERED: CHOLESTEROL PO (20:22)
[2016-08-10] MEDS ORDERED: DETOX PO (20:22)
[2016-08-10] MEDS ORDERED: [UNRECOGNIZED DRUG - OTHER] PO (20:22)
[2016-08-10] MEDS ORDERED: LECITHIN PO (20:22)
[2016-08-10] MEDS ORDERED: [UNRECOGNIZED DRUG - OTHER] PO (20:22)
[2016-08-10] MEDS ORDERED: OMEG-15 PO (20:22)
[2016-08-10] MEDS ORDERED: [UNRECOGNIZED DRUG - OTHER] PO (20:22)
[2016-08-10] MEDS ORDERED: [UNRECOGNIZED DRUG - OTHER] PO (20:22)
[2016-08-10] MEDS ORDERED: [UNRECOGNIZED DRUG - REMARK] PO (20:22)
--- NOTE | 2016-08-10 20:31 | NUR ---
HOME MEDICATIONS CLARIFICATION Med reconciliation completed at this time. Patient reports that she was taken off of Aspirin last week, that she has not been taking this medication. Patient reports that her course of Cefdinir was completed, that she no longer takes this medication.
[2016-08-10] MEDS: CEFDINIR 300 MG CAPSULE PO SCH (21:00)
[2016-08-10] MEDS: ASCORBIC ACID 500 MG TABLET PO SCH (21:05)
[2016-08-10] MEDS: DABIGATRAN 150 MG CAPSULE PO SCH (21:05)
--- NOTE | 2016-08-10 21:14 | NUR ---
CEFDINIR REFUSED BY PT THIS HS, PT STATES SHE FINISHED HER REGIMEN A FEW DAYS AGO AND EXPRESSES CONCERNS ON CONTINUED ABX THERAPY.
[2016-08-10] MEDS ORDERED: MELATONIN 1 MG TABLET PO SCH (22:00)
[2016-08-11] VITALS (92 sets, daily range): BP systolic 99–215; BP diastolic 56–138; PULSE 49–87; RESP 6–38; TEMP 97.1–98.1; O2SAT 89–100
--- NOTE | 2016-08-11 04:00 | NUR ---
CARDIZEM OFF FOR PT'S HR MAINTAINED IN LOW 60s WITH OCCASIONAL DIPS TO 30s-40s. Addendum: 08/11/16 at 0435 by EMMIE ROTHMAN RN correction - HR as low as 28 bpm
--- NOTE | 2016-08-11 04:15 | NUR ---
CPAP REFUSED BY PT, PLACED ON 2L O2 NC INSTEAD.
[2016-08-11] MEDS ORDERED: OMEPRAZOLE 20 MG CAPSULE PO SCH (06:30)
[2016-08-11] MEDS ORDERED: FUROSEMIDE 20 MG TABLET PO SCH (09:00)
[2016-08-11] MEDS ORDERED: ASPIRIN *EC* 325mg TABLET PO SCH (09:00)
[2016-08-11] MEDS ORDERED: RAMIPRIL 5 MG CAPSULE PO SCH (09:00)
[2016-08-11] MEDS: CEFDINIR 300 MG CAPSULE PO SCH (09:00)
[2016-08-11] MEDS: ASCORBIC ACID 500 MG TABLET PO SCH (09:11)
[2016-08-11] MEDS: DABIGATRAN 150 MG CAPSULE PO SCH (09:38)
--- NOTE | 2016-08-11 10:54 | NUR ---
CM CM IN TO VISIT WITH PT. SHE IS ALERT AND ORIENTED. SHE REPORTS THAT SHE CURRENTLY USES [facility] BUT IS UNCERTAIN OF HER PROVIDER. SHE PLANS TO RESUME SERVICES UPON RETURN HOME. SHE IS GIVEN CM CONTACT INFORMATION. Addendum: 08/11/16 at 1055 by KARI AGUIRRE RN Amended: Links added.
--- NOTE | 2016-08-11 13:00 | NUR ---
STATUS/CARDIAC REMAINS NPO FOR CARDIOVERSION. EXTENSIVE TEACHING TO AND PATIENT WITH UNDERSTANDING EXPRESSED. MONITOR REMAINS ATRIAL FIB WITH HR MOSTLY 60'S-70'S. AMIODARONE DRIP CONT AT 16.7 CC PER HR.
[2016-08-11 14:19] LABS: HCT - HEMATOCRIT 40.9 % (36-46); HGB - HEMOGLOBIN 13.2 GM/DL (12-16); MEAN CORPUSCULAR HGB 31.2 UUG (26-34); MEAN CORPUSCULAR HGB CONC(MCHC 32.3 GM/DL (31-37); MEAN CORPUSCULAR VOLUME 96.7 UM3 (80-100); MEAN PLATELET VOLUME 10.6 UM3 (9.4-12.4); RED BLOOD COUNT 4.23 M/MM3 (4.00-5.20)
[2016-08-11 14:29] LABS: EOSINOPHILS # (MANUAL) 0.1 T/MM3 (0-0.5); LYMPHOCYTES # (MANUAL) 1.4 T/MM3 (1-4.8); MONOCYTES # (MANUAL) 0.4 T/MM3 (0-0.8); NEUTROPHILS #(MANUAL)-ABSOLUTE 4.6 T/MM3 (1.8-7.7); REACTIVE LYMPHOCYTES # 0.4 T/MM3 (0-0)
--- NOTE | 2016-08-11 14:30 | NUR ---
Abdominal Drainage Assisted patient to the bathroom and noticed bright red blood coming from her abdominal area. Patient states this is site of prior abdominal surgeries, but she states she has never had bleeding from site. Cleaned with washcloth and water and dried well. 4X4's placed over abdominal site.
[2016-08-11 14:35] LABS: ANION GAP 11 MEQ/L (5-15); BUN/CREATININE RATIO 19 RATIO (6-26); CALCIUM 8.3 MG/DL (8.4-10.2); CHLORIDE 106 MEQ/L (98-107); CO2 - CARBON DIOXIDE 28 MEQ/L (22-30); CREATININE 0.9 MG/DL (0.7-1.2); GLOMERULAR FILTRATION RATE 60; GLUCOSE 92 MG/DL (65-110); MAGNESIUM 2.2 MG/DL (1.6-2.3); SODIUM 145 MEQ/L (134-144)
[2016-08-11 15:06] LABS: THYROID STIM HORMONE-TSH 0.97 MIU/L (0.47-4.68)
--- NOTE | 2016-08-11 15:30 | NUR ---
ABD WOUND SITE CLEAN AND DRY AT THIS TIME.
[2016-08-11] MEDS ORDERED: AMLODIPINE 5 MG TABLET PO SCH (15:45)
[2016-08-11] MEDS ORDERED: AMLO5TAB2 PO (17:12)
[2016-08-11] MEDS ORDERED: AMIO200T7 PO (17:12)
[2016-08-11] MEDS ORDERED: AMIODARONE 200 MG TABLET PO SCH (17:15)
--- NOTE | 2016-08-11 17:23 | NUR ---
CARDIOVERSION SEE NOTES. PERFORMED BY DR HOUSTON, VERSED 3 MG AND FENTANYL 50 MCG IV GIVEN. CONVERTS TO SINUS BRADYCARDIA WITH PAC'S NOTED. HR 50'S. SLOWLY MORE RESPONSIVE.
--- NOTE | 2016-08-11 17:55 | NUR ---
STATUS AWAKE, ALERT, DENIES DISCOMFORT. MONITOR SHOWS SINUS BRADYCARDIA WITH OCCAS PACS NOTED. YAMILE DIET WELL WITHOUT NAUSEA. IS VOIDING WELL.
--- NOTE | 2016-08-11 18:00 | DSPDOC ---
YEIMY DE JESUS HRIS ADMINISTRATOR 08/11/16 1756: General Date Date DATE: 08/11/16 TIME: 17:52 Attending Physician Gael Houston MD Admitting Physician Gael Houston MD Consulting Physician Admitting Diagnosis Atrial fibrillation RVR Discharge Diagnosis paroxysmal atrial fibrillation Procedures Direct current cardioversion 08/11/16 Laboratory Laboratory Tests Test 08/11/16 14:04 White Blood Count 7.0T/MM3 (4.5-11.0) Red Blood Count 4.23M/MM3 (4.00-5.20) Hemoglobin 13.2GM/DL (12-16) Hematocrit 40.9% (36-46) Mean Corpuscular Volume 96.7UM3 (80-100) Mean Corpuscular Hemoglobin 31.2UUG (26-34) Mean Corpuscular Hemoglobin Concent 32.3GM/DL (31-37) RDW Standard Deviation 49.2FL (36.9-50.2) Platelet Count 205T/MM3 (130-400) Mean Platelet Volume 10.6UM3 (9.4-12.4) Neutrophils % (Manual) 66.0% (33-66) Lymphocytes % (Manual) 20.0% (23-45) Reactive Lymphocytes % 6.0% (0-0) Monocytes % (Manual) 6.0% (0-9.0) Eosinophils % (Manual) 2.0% (0-4) Absolute Neutrophils (Manual) 4.6T/MM3 (1.8-7.7) Lymphocytes # (Manual) 1.4T/MM3 (1-4.8) Reactive Lymphocytes # 0.4T/MM3 (0-0) Monocytes # (Manual) 0.4T/MM3 (0-0.8) Eosinophils # (Manual) 0.1T/MM3 (0-0.5) Red Cell Morphology Comment Normal Turbidity < 20 (0-20) Sodium Level 145MEQ/L (134-144) Potassium Level 4.0MEQ/L (3.6-5) Chloride Level 106MEQ/L (98-107) Carbon Dioxide Level 28MEQ/L (22-30) Anion Gap 11MEQ/L (5-15) Blood Urea Nitrogen 17.0MG/DL (7-17) Creatinine 0.9MG/DL (0.7-1.2) Glomerular Filtration Rate Calc 60 BUN/Creatinine Ratio 19RATIO (6-26) Glucose Level 92MG/DL (65-110) Calculated Osmolality 281MOSM/KG (261-280) Calcium Level 8.3MG/DL (8.4-10.2) Magnesium Level 2.2MG/DL (1.6-2.3) Icterus Index < 2 (0-7) Thyroid Stimulating Hormone (TSH) 0.97MIU/L (0.47-4.68) Chemistry Specimen Hemolysis 31 (0-25) History of Present Illness Shahnaz is a 86 year old female who is well known to who presented to the clinic in AFib RVR. She had recent hospitalization for AFib RVR on July 19, 2016 at which time she was started on Flecainide, Amlodipine and Pradaxa. She was admitted to CCU and started on IV Amiodarone and Cardizem. Objective Vital Signs Vital signs Vital Signs 08/11/16 08/11/16 08/11/16 08/11/16 06:00 06:15 06:30 06:45 Pulse 61 61 66 62 Resp 13 13 17 14 B/P 119/63 127/66 154/74 148/83 Pulse Ox 98 98 96 98 O2 Delivery Nasal Cannula Nasal Cannula Nasal Cannula Nasal Cannula O2 Flow Rate 2.00 2.00 2.00 2.00 08/11/16 08/11/16 08/11/16 08/11/16 07:00 07:15 07:30 07:45 Pulse 61 62 62 63 Resp 14 15 14 15 B/P 135/74 134/73 116/63 134/60 Pulse Ox 98 98 97 95 O2 Delivery Nasal Cannula Nasal Cannula Nasal Cannula Nasal Cannula O2 Flow Rate 2.00 2.00 2.00 2.00 08/11/16 08/11/16 08/11/16 08/11/16 08:00 08:01 08:15 08:30 Temp 98.1 Pulse 73 63 68 66 Resp 18 15 16 14 B/P 135/71 153/87 165/91 Pulse Ox 100 99 98 O2 Delivery Nasal Cannula Nasal Cannula Nasal Cannula O2 Flow Rate 2.00 2.00 2.00 08/11/16 08/11/16 08/11/16 08/11/16 08:45 09:00 09:16 09:30 Pulse 66 65 82 68 Resp 14 14 27 17 B/P 153/81 148/87 215/96 163/90 Pulse Ox 98 98 98 96 O2 Delivery Nasal Cannula Nasal Cannula Nasal Cannula Nasal Cannula O2 Flow Rate 2.00 2.00 2.00 2.00 08/11/16 08/11/16 08/11/16 08/11/16 10:08 10:14 10:16 10:30 Pulse 71 67 69 60 Resp 19 17 B/P 156/94 147/70 130/78 134/75 Pulse Ox 97 96 96 97 O2 Delivery Nasal Cannula Nasal Cannula Nasal Cannula Nasal Cannula O2 Flow Rate 2.00 2.00 2.00 2.00 08/11/16 08/11/16 08/11/16 08/11/16 10:45 11:09 11:16 11:30 Pulse 70 64 63 66 Resp 16 15 16 17 B/P 142/87 128/77 150/87 Pulse Ox 98 99 98 96 O2 Delivery Nasal Cannula Nasal Cannula Nasal Cannula Nasal Cannula O2 Flow Rate 2.00 2.00 2.00 2.00 08/11/16 08/11/16 08/11/16 08/11/16 11:46 12:00 12:01 12:16 Temp 97.1 Pulse 69 67 62 70 Resp B/P 173/103 185/138 137/73 Pulse Ox 97 97 97 O2 Delivery Nasal Cannula Nasal Cannula Nasal Cannula O2 Flow Rate 2.00 2.00 2.00 08/11/16 08/11/16 08/11/16 08/11/16 12:31 12:46 13:00 13:15 Pulse 64 70 67 63 Resp 17 B/P 152/105 150/70 150/76 140/76 Pulse Ox 94 96 97 97 O2 Delivery Nasal Cannula Nasal Cannula Nasal Cannula Nasal Cannula O2 Flow Rate 2.00 2.00 2.00 2.00 08/11/16 08/11/16 08/11/16 08/11/16 13:30 13:45 14:01 14:46 Pulse 67 79 84 Resp 21 B/P 145/72 126/61 169/69 140/97 Pulse Ox 96 98 95 O2 Delivery Nasal Cannula Nasal Cannula Nasal Cannula O2 Flow Rate 2.00 2.00 2.00 08/11/16 08/11/16 08/11/1617 15:00 15:15 15:30 15:45 Temp 97.9 Pulse 71 82 73 74 Resp 22 29 18 32 B/P 139/64 Pulse Ox 98 97 97 96 O2 Delivery Nasal Cannula Nasal Cannula Nasal Cannula Nasal Cannula O2 Flow Rate 2.00 2.00 2.00 2.00 08/11/16 08/11/16 08/11/16 08/11/16 16:00 16:09 17:00 17:03 Pulse 66 66 Resp 23 20 B/P 145/84 Pulse Ox 96 O2 Delivery Nasal Cannula Nasal Cannula Nasal Cannula O2 Flow Rate 2.00 2.00 08/11/16 08/11/16 08/11/16 08/11/16 17:03 17:10 17:11 17:15 Pulse 52 49 Resp 12 10 B/P 145/84 135/76 119/68 Pulse Ox 90 90 O2 Delivery Nasal Cannula Bi-pap Bi-pap O2 Flow Rate 2.00 3.00 3.00 08/11/16 08/11/16 08/11/16 08/11/16 17:20 17:30 17:35 17:40 Pulse 51 51 50 52 Resp 12 12 13 22 B/P 109/67 117/60 108/65 109/60 Pulse Ox 90 91 91 97 O2 Delivery Bi-pap Bi-pap Bi-pap Bi-pap O2 Flow Rate 3.00 3.00 3.00 3.00 08/11/16 17:45 Pulse 52 Resp 15 B/P 127/69 Pulse Ox 93 O2 Delivery Bi-pap O2 Flow Rate 3.00 Height (Feet): 5 Height (Inches): 2.00 Weight (Kilograms): 95.700 General Alert, Orientated x 2, Cooperative, No Acute Distress ENMT (Brief) mucosa moist Neck (Brief) NOT FOUND: JVD, carotid bruits Respiratory (Brief) clear all wilson, equal bilaterally, NOT FOUND: rales, wheezes Cardiovascular (Brief) NOT FOUND: click, gallop, murmur, pedal edema, regular rate, regular rhythm, rub Abdomen (Brief) BS normo active x4, soft, NOT FOUND: tender Integumentary (Brief) dry, pink, warm Psychiatric (Brief) alert, oriented Laboratory Laboratory Laboratory Tests Test 08/11/16 14:04 White Blood Count 7.0T/MM3 Red Blood Count 4.23M/MM3 Hemoglobin 13.2GM/DL Hematocrit 40.9% Mean Corpuscular Volume 96.7UM3 Mean Corpuscular Hemoglobin 31.2UUG Mean Corpuscular Hemoglobin Concent 32.3GM/DL RDW Standard Deviation 49.2FL Platelet Count 205T/MM3 Mean Platelet Volume 10.6UM3 Neutrophils % (Manual) 66.0% Lymphocytes % (Manual) 20.0% Reactive Lymphocytes % 6.0% Monocytes % (Manual) 6.0% Eosinophils % (Manual) 2.0% Absolute Neutrophils (Manual) 4.6T/MM3 Lymphocytes # (Manual) 1.4T/MM3 Reactive Lymphocytes # 0.4T/MM3 Monocytes # (Manual) 0.4T/MM3 Eosinophils # (Manual) 0.1T/MM3 Red Cell Morphology Comment Normal Turbidity < 20 Sodium Level 145MEQ/L Potassium Level 4.0MEQ/L Chloride Level 106MEQ/L Carbon Dioxide Level 28MEQ/L Anion Gap 11MEQ/L Blood Urea Nitrogen 17.0MG/DL Creatinine 0.9MG/DL Glomerular Filtration Rate Calc 60 BUN/Creatinine Ratio 19RATIO Glucose Level 92MG/DL Calculated Osmolality 281MOSM/KG Calcium Level 8.3MG/DL Magnesium Level 2.2MG/DL Icterus Index < 2 Thyroid Stimulating Hormone (TSH) 0.97MIU/L Chemistry Specimen Hemolysis 31 Laboratory Tests 08/11/16 14:04 Laboratory Tests 08/11/16 14:04 Medications Current Medications Amiodarone HCl/ Sodium Chloride (Amiodarone/NS) 53 ml @ 300 mls/hr Q11M ONCE IV ; Start 08/10/16 at 15:49; Stop 08/10/16 at 15:59; Status Cancel Diltiazem HCl 20 mg 20 mg O ONCE IV Last administered on 08/10/16 17:08; Start 08/10/16 at 16:00; Stop 08/11/16 at 15:55; Status DC Diltiazem HCl 125 mg/Sodium Chloride 125 ml @ 5 mls/hr Q24H IV Last administered on 08/10/16 17:00; Start 08/10/16 at 15:49; Stop 08/11/16 at 15:55 ; Status DC Amiodarone HCl 150 mg/Sodium Chloride 103 ml @ 600 mls/hr Q11M ONCE IV Last administered on 08/10/16 16:41; Start 08/10/16 at 16:15; Stop 08/10/16 at 16:25 ; Status DC Amiodarone HCl/ Sodium Chloride (Cordarone/NS) 518 ml @ 16.7 mls/hr Q24H IV Last administered on 08/10/16 22:15; Start 08/10/16 at 21:49 Ascorbic Acid (VITAMIN C 500 mg Tablet) 500 mg BID PO Last administered on 08/11 09:11; Start 08/10/16 at 21:00 Aspirin (Ecotrin) 325 mg DAILY PO ; Start 08/11/16 at 09:00; Stop 08/11/16 at 11 :41; Status DC Cefdinir (Omnicef) 300 mg BID PO ; Start 08/10/16 at 21:00; Stop 08/11/16 at 11: 42; Status DC Dabigatran (Pradaxa) 150 mg BID PO Last administered on 08/11/16 09:38; Start 08/10/16 at 21:00 Furosemide (Lasix) 20 mg DAILY PO Last administered on 08/11/16 09:11; Start 08/11/16 at 09:00 Melatonin (Melatonin) 1 mg HS PO Last administered on 08/10/16 21:05; Start at 22:00 Nitroglycerin (Nitrostat) 0.4 mg Q5M PRN SL CHEST TIGHTNESS; Start 08/10/16 at 18:30 Omeprazole (Prilosec) 40 mg ACB PO Last administered on 08/11/16 06:21; Start 08/11/16 at 06:30 Ondansetron HCl (Zofran Odt) 4 mg TID PRN PO NAUSEA &/OR VOMITING; Start at 18:30 Ramipril (Altace) 10 mg DAILY PO Last administered on 08/11/16 09:12; Start at 09:00 Amlodipine Besylate (Norvasc) 5 mg DAILY PO Last administered on 08/11/16 16: 09; Start 08/11/16 at 15:45 Amiodarone HCl (Pacerone) 200 mg DAILY PO ; Start 08/11/16 at 17:15 Hospital Course She did not convert by this afternoon so she was kept NPO and underwent DCCV under conscious sedation. She will discharge on Amiodarone 200mg daily, Amlodipine 5mg daily. Problems: Code Status Full Code Home Meds Active Scripts Amlodipine Besylate (Amlodipine Besylate) 5 Mg Tablet, 5 MG PO DAILY for 30 Days , #30 TAB 11 Refills Prov:YEIMY DE JESUS HRIS ADMINISTRATOR 08/11/16 Amiodarone HCl (Pacerone) 200 Mg Tablet, 200 MG PO DAILY for 30 Days, #30 TAB 11 Refills Prov:YEIMY DE JESUS HRIS ADMINISTRATOR 08/11/16 Dabigatran Etexilate Mesylate (Pradaxa) 150 Mg Capsule, 150 MG PO BID for 30 Days, #60 CAP 11 Refills Prov:GRACE DACOSTA DO 07/20/16 Reported Medications [lecithin/cholesterol] No Conflict Check, 1 CAP PO NOON 08/10/16 [detox & antiaging] No Conflict Check, 1 CAP PO NOON 08/10/16 [stress & fatigue ] No Conflict Check, 1 CAP PO NOON 08/10/16 [Perlita & Digestion] No Conflict Check, 1 CAP PO NOON 08/10/16 [Immune Formula 103] No Conflict Check, 1 CAP PO NOON 08/10/16 [Neurologic Memory] No Conflict Check, 1 CAP PO NOON 08/10/16 Duncan-3/Dha/Epa/Fish Oil (Fish Oil 500 mg Softgel) 1 Each Capsule, 1 CAP PO DAILY 08/10/16 [Prevagen] No Conflict Check, 1 TAB PO DAILY 07/13/16 [Mood Fix] No Conflict Check, 1 TAB PO DAILY 07/13/16 Multivitamin (Multiple Vitamins) 1 Each Tablet, 1 TAB PO DAILY 07/13/16 Pyridoxine HCl (Vitamin B-6) 200 Mg Tablet.er, 200 MG PO DAILY 07/13/16 Ascorbic Acid (Vitamin C) 500 Mg Tablet, 500 MG PO BID 07/13/16 [Kyolic Garlic] No Conflict Check, 1 TAB PO DAILY 07/13/16 Cat's Claw (Cat's Claw) Unknown Strength Capsule, 500 MG PO WS 07/13/16 Garlic (Garlic) 1 Each Tablet, 1 TAB PO DAILY 07/13/16 Menthol (Biofreeze) 118 Ml Gel..ml., 1 APPLIC TOP PRN 07/13/16 Biotin (Biotin) 5,000 Mcg Tab.rapdis, 49959 MCG PO PM 07/13/16 Papaya (Papaya Enzyme) 1 Each Tablet, 4 TAB PO PCHS 07/13/16 Melatonin (Melatonin) 1 Mg Tablet, 1 MG PO HS 07/13/16 Multivits Min/Iron/FA/Herb#186 (Hair, Skin & Nails Caplet) 1 Each Tablet, 1 TAB PO DAILY 07/13/16 Ondansetron (Ondansetron Odt) 4 Mg Tab.rapdis, 4 MG PO TID Y for NAUSEA &/OR VOMITING 07/13/16 Omeprazole (Omeprazole) 40 Mg Capsule.dr, 40 MG PO DAILY 10/07/15 Furosemide (Furosemide) 20 Mg Tablet, 20 MG PO DAILY 10/07/15 Ramipril (Ramipril) 10 Mg Capsule, 10 MG PO DAILY 10/07/15 Ubidecarenone (Coq-10) 100 Mg Capsule, 100 MG PO DAILY 02/29/08 Discontinued Reported Medications Aspirin *EC* (Ecotrin) 325 Mg Tablet.dr, 325 MG PO DAILY 07/13/16 Discharge Disposition patient is discharged to her home in the care of herself in good and stable condition with RX for Amiodarone 200mg daily and Amlodipine 5mg daily Copies To 1: GRACE DACOSTA HOSSEIN MD 08/15/16 8013: Hospital Course Home Meds Active Scripts Amlodipine Besylate (Amlodipine Besylate) 5 Mg Tablet, 5 MG PO DAILY for 30 Days , #30 TAB 11 Refills Prov:YEIMY DE JESUS HRIS ADMINISTRATOR 08/11/16 Amiodarone HCl (Pacerone) 200 Mg Tablet, 200 MG PO DAILY for 30 Days, #30 TAB 11 Refills Prov:YEIMY DE JESUS HRIS ADMINISTRATOR 08/11/16 Dabigatran Etexilate Mesylate (Pradaxa) 150 Mg Capsule, 150 MG PO BID for 30 Days, #60 CAP 11 Refills Prov:GRACE DACOSTA DO 07/20/16 Reported Medications [lecithin/cholesterol] No Conflict Check, 1 CAP PO NOON 08/10/16 [detox & antiaging] No Conflict Check, 1 CAP PO NOON 08/10/16 [stress & fatigue ] No Conflict Check, 1 CAP PO NOON 08/10/16 [Perlita & Digestion] No Conflict Check, 1 CAP PO NOON 08/10/16 [Immune Formula 103] No Conflict Check, 1 CAP PO NOON 08/10/16 [Neurologic Memory] No Conflict Check, 1 CAP PO NOON 08/10/16 Duncan-3/Dha/Epa/Fish Oil (Fish Oil 500 mg Softgel) 1 Each Capsule, 1 CAP PO DAILY 08/10/16 [Prevagen] No Conflict Check, 1 TAB PO DAILY 07/13/16 [Mood Fix] No Conflict Check, 1 TAB PO DAILY 07/13/16 Multivitamin (Multiple Vitamins) 1 Each Tablet, 1 TAB PO DAILY 07/13/16 Pyridoxine HCl (Vitamin B-6) 200 Mg Tablet.er, 200 MG PO DAILY 07/13/16 Ascorbic Acid (Vitamin C) 500 Mg Tablet, 500 MG PO BID 07/13/16 [Kyolic Garlic] No Conflict Check, 1 TAB PO DAILY 07/13/16 Cat's Claw (Cat's Claw) Unknown Strength Capsule, 500 MG PO WS 07/13/16 Garlic (Garlic) 1 Each Tablet, 1 TAB PO DAILY 07/13/16 Menthol (Biofreeze) 118 Ml Gel..ml., 1 APPLIC TOP PRN 07/13/16 Biotin (Biotin) 5,000 Mcg Tab.rapdis, 75912 MCG PO PM 07/13/16 Papaya (Papaya Enzyme) 1 Each Tablet, 4 TAB PO PCHS 07/13/16 Melatonin (Melatonin) 1 Mg Tablet, 1 MG PO HS 07/13/16 Multivits Min/Iron/FA/Herb#186 (Hair, Skin & Nails Caplet) 1 Each Tablet, 1 TAB PO DAILY 07/13/16 Ondansetron (Ondansetron Odt) 4 Mg Tab.rapdis, 4 MG PO TID Y for NAUSEA &/OR VOMITING 07/13/16 Omeprazole (Omeprazole) 40 Mg Capsule.dr, 40 MG PO DAILY 10/07/15 Furosemide (Furosemide) 20 Mg Tablet, 20 MG PO DAILY 10/07/15 Ramipril (Ramipril) 10 Mg Capsule, 10 MG PO DAILY 10/07/15 Ubidecarenone (Coq-10) 100 Mg Capsule, 100 MG PO DAILY 02/29/08 Discontinued Reported Medications Aspirin *EC* (Ecotrin) 325 Mg Tablet., 325 MG PO DAILY 07/13/16 Discharge Disposition After examining the patient I agree with the above assessment. I am involved in the formulation of the patient's plan of care. Copies To 1: GRACE DACOSTA AMY M APRN Aug 11, 2016 17:56 GAEL HOUSTON MD Aug 15, 2016 15:47
--- NOTE | 2016-08-11 18:32 | DC CARDIOF ---
DATE OF PROCEDURE 08/11/2016 PRIMARY CARE PHYSICIAN Naresh Aragon, DO INDICATIONS Patient is a pleasant, 86-year-old lady who was admitted with atrial fibrillation with rapid ventricular rate and was started on amiodarone. However, patient failed to convert on amiodarone and was referred for DC cardioversion. Patient has been on chronic anticoagulation. Informed consent was obtained after explaining the procedure and the potential risks to the patient who agreed to proceed with the procedure. PROCEDURE DC cardioversion. DESCRIPTION OF PROCEDURE Conscious sedation was performed using Versed and fentanyl. Anterior-posterior Zoll pads were applied. Then, 360 joules of energy was delivered in a synchronized manner in biphasic mode and patient converted from atrial fibrillation to sinus rhythm. She tolerated the procedure well with no complications. IMPRESSION 1. Successful DC cardioversion of atrial fibrillation to sinus rhythm. PLAN Will keep her on anticoagulation and start her on antiarrhythmics to maintain sinus. HENRIQUE
--- NOTE | 2016-08-11 19:42 | NUR ---
Discharge Pt dismissed at this time via wheelchair via ED Exit. Pt's present. He packed up belongings and pulled personal vehicle. RN assisted pt to passenger side of vehicle with use of pt's personal walker. Steady gait. Discharge education provided. Amiodarone and Amlodipine medication information provided. Questions answered. Encouraged pt to contact physician with any questions or concerns. Or activate EMS for s/s of concern. and pt verbalized understanding. IVL to right hand removed.
== END 2016-08-11 19:42 | disposition home health service (06) ==
LOC: CCU 15:46 → EEVIPCON 15:46
PROVIDERS: ADMIT Internal Medicine Cardiovascular Disease; ATTEND Internal Medicine Cardiovascular Disease
DX: I48.0 Paroxysmal atrial fibrillation (principal); I10 Essential (primary) hypertension; E11.9 Type 2 diabetes mellitus without complications; Z79.02 Long term (current) use of antithrombotics/antiplatelets; Z79.899 Other long term (current) drug therapy
CPT/HCPCS: 36415; 80048; 83735; 84443; 85007; 85027; 92960; 93005; 94770; 96365; 96366; 96368; A9270; G0378; G0379; J0282; J2250; J3010; J7050; 99218